=== PATIENT | female | born 1945 | race Caucasian/White ===

== ENCOUNTER 2016-08-05 14:22 | Emergency (ER) | payer OTHER, BC ==
[~2016-08-05] VITALS: Ht 167.6 cm; Wt 72.8 kg
[~2016-08-05 14:22] MED LIST: BENADRYL25 MG PO; COMPAZINE10 MG PO; METOPROLOL TART25 MG PO; ONDANSETRON HCL4 MG PO
[2016-08-05 15:37] LABS: HEMATOCRIT 45.6 % (36.0-46.0); MCH 31.2 PG (29.0-34.0); MCHC 34.6 G/DL (30.0-36.0); MCV 89.9 FL (83-99); MEAN PLAT.VOLUME 8.6 uM^3 (9.5-12.4); PLATELET COUNT 405 K/uL (156-360); RBC DIS.WIDTH-CV 12.5 % (11.8-14.6); RBC DIS.WIDTH-SD 41.1 % (39-53); RED BLOOD COUNT 5.07 M/uL (3.80-5.20)
[2016-08-05 15:46] LABS: CHLORIDE 84 mEq/L (99-109); SODIUM 130 mEq/L (136-147)
[2016-08-05 15:48] LABS: GLUCOSE 109 mg/dL (70-99)
[2016-08-05 15:50] LABS: ANION GAP 15 MEQ/L (2-14); TOTAL BILIRUBIN 0.9 mg/dL (0.0-1.0)
[2016-08-05 15:52] LABS: ALKALINE PHOSPHATASE 121 IU/L (3-129); GFR ESTIMATE (CALCULATED) 47 mL/min/
[2016-08-05 15:53] LABS: UREA NITROGEN (BUN) 19 mg/dL (9-23)
[2016-08-05 15:55] LABS: LIPASE 19 U/L (1.0-51.0)
[2016-08-05 18:25] VITALS: BP 143/96
== END 2016-08-05 21:51 | disposition short-term general hospital (02) ==
LOC: EME 14:22
PROVIDERS: Nurse Practitioner Family
DX: K56.69 Other intestinal obstruction (principal); E86.0 Dehydration; Z85.43 Personal history of malignant neoplasm of ovary; Z98.890 Other specified postprocedural states; I10 Essential (primary) hypertension; Z90.710 Acquired absence of both cervix and uterus; Z87.891 Personal history of nicotine dependence
CPT/HCPCS: 74177; 80053; 83605; 83690; 85027; 99281; 99284; J7040